=== PATIENT | female | born 2000 | race African-American/Black ===

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

== ENCOUNTER 2020-04-25 00:30 | Inpatient (IN) ==
[2020-04-25] MEDS ORDERED: FAMOTIDINE 20 MG/2 ML VIAL IV ONE (00:42)
[2020-04-25] MEDS ORDERED: ceFAZolin 2,000 MG in PREMIX 1 EACH IV ONE (00:42)
[2020-04-25] MEDS ORDERED: CITRIC ACID/SODIUM CITRATE 30 ML UDCUP PO ONE (00:42)
[2020-04-25] MEDS ORDERED: OXYTOCIN/LR 20 UNIT/1,000 ML BAG IV ONE ×3 (00:43→02:00)
[2020-04-25] MEDS ORDERED: miSOPROStoL 200 MCG TABLET ONE (00:57)
[2020-04-25] MEDS ORDERED: CARBOPROST TROMETHAMINE 250 MCG/ML AMP IM ONE (00:58)
[2020-04-25] MEDS ORDERED: METHYLERGONOVINE 0.2 MG/1 ML AMP ONE (00:58)
[2020-04-25] MEDS ORDERED: LACTATED RINGERS 1,000 ML IV SCH ×2 (01:00→02:00)
[2020-04-25 01:47] LABS: Cord Arterial Blood HCO3 20.6 MMOL/L
[2020-04-25 01:49] LABS: Cord Venous Blood HCO3 22.8 MMOL/L; Cord Venous Blood PO2 33.1
[2020-04-25] MEDS ORDERED: ACETAMINOPHEN 325 MG TABLET PO PRN (02:00)
[2020-04-25] MEDS ORDERED: ONDANSETRON 4 MG/2 ML VIAL IV PRN (02:00)
[2020-04-25] MEDS ORDERED: SIMETHICONE CHEW 80 MG TABLET PO PRN (02:00)
[2020-04-25] MEDS ORDERED: RHO(D) IMMUNE GLOBULIN 300 MCG SYRINGE IM ONE (02:00)
[2020-04-25] MEDS ORDERED: MORPHINE 10 MG/10 ML VIAL ONE (02:21)
[2020-04-25] MEDS ORDERED: PHENYLEPHRINE 1 MG/10 ML SYRINGE IV ONE (02:22)
[2020-04-25] MEDS ORDERED: fentaNYL 100 MCG/2 ML VIAL ONE (02:23)
[2020-04-25] MEDS ORDERED: BUPIVACAINE SPINAL 0.75% 2 ML AMP SPINAL ONE (02:23)
[2020-04-25 02:36] LABS: Bilirubin,Urine Negative (Negative); Blood, Urine Negative (Negative); Glucose,Urine (UA) Negative (Negative); Ketones,Urine 20 mg/dL (Negative); Mucus,Urine Occasional /LPF (Occasional); Nitrite,Urine Negative (Negative); Protein,Urine Negative; RBC,Urine 1 /HPF (0-4); Squamous Epithelial Cell,Urine Occasional /HPF (0-10); Urine Appearance CLEAR (Clear); Urine Color Yellow (Yellow); WBC,Urine 1 /HPF (0-6)
[2020-04-25 02:40] LABS: Barbiturates Screen,Urine Negative (Negative); Benzodiazepines Screen,Urine Negative (Negative); Cannabinoid Screen,Urine Positive (Negative); Opiate Screen,Urine Positive (Negative); Phencyclidine Screen,Urine Negative (Negative)
[2020-04-25 03:08] LABS: Basophils % 0.2 % (0.0-0.8); Hematocrit 33.9 VOL% (35.7-47.0); Hemoglobin 11.1 GM/DL (12.0-16.0); Immature Granulocytes % 0.2 %; Immature Granulocytes Absolute 0.03 #; Lymphocytes # 0.9 10*3/uL (1.4-4.0); Lymphocytes % 7.3 % (21.3-54.2); Mean Corpuscular HGB Conc 32.7 GM/DL (32-36); Mean Corpuscular Volume 72.6 FL (87-102); Mean Platelet Volume 10.7 FL (9.6-12.0); Monocytes % 5.1 % (1.7-12.7); NRBC # 0.02 10*3/uL; Neutrophils % 87.2 % (38.7-73.9); Red Blood Count 4.67 MC/CUMM (3.8-5.5); Red Cell Distribution Width 17.1 % (9.3-17.3); White Blood Count 12.6 T/CUMM (4-12)
[2020-04-25] MEDS ORDERED: INFLUENZA VIRUS VACCINE 0.5 ML SYRINGE IM ONE (03:12)
[2020-04-25 03:17] LABS: Platelet Count 173 T/CUMM (130-400)
[2020-04-25] MEDS ORDERED: HYDROmorphone 2 MG/1 ML VIAL IV PRN (03:40)
[2020-04-25 04:11] LABS: Platelet Estimate Normal
[2020-04-25 04:12] LABS: Target Cells 1+
[2020-04-25 04:13] LABS: Hypochromasia 1+
[2020-04-25] MEDS: oxyCODONE/ACETAMINOPHEN 5-325 MG TABLET PO PRN ×3 (07:59→21:21)
[2020-04-25] MEDS: MULTIVITAMIN (PRENATAL) TABLET PO SCH (08:00)
[2020-04-25] MEDS: IBUPROFEN 800 MG TABLET PO PRN ×2 (08:00→21:21)
[2020-04-25 09:28] LABS: Basophils # 0.1 10*3/uL (0.0-0.2); Basophils % 0.3 % (0.0-0.8); Eosinophils % 0.1 % (0.00-10.9); Hematocrit 32.4 VOL% (35.7-47.0); Hemoglobin 10.8 GM/DL (12.0-16.0); Immature Granulocytes % 0.3 %; Immature Granulocytes Absolute 0.06 #; Lymphocytes # 1.6 10*3/uL (1.4-4.0); Lymphocytes % 8.7 % (21.3-54.2); Mean Corpuscular HGB Conc 33.3 GM/DL (32-36); Mean Corpuscular Volume 71.7 FL (87-102); Mean Platelet Volume 10.5 FL (9.6-12.0); Monocytes % 5.3 % (1.7-12.7); Neutrophils % 85.3 % (38.7-73.9); Platelet Count 270 T/CUMM (130-400); Red Blood Count 4.52 MC/CUMM (3.8-5.5); White Blood Count 18.2 T/CUMM (4-12)
[2020-04-25] MEDS: DOCUSATE SODIUM 100 MG CAPSULE PO SCH ×2 (11:43→21:21)
[2020-04-26] MEDS: oxyCODONE/ACETAMINOPHEN 5-325 MG TABLET PO PRN ×4 (01:38→20:10)
[2020-04-26 05:40] LABS: Basophils # 0.1 10*3/uL (0.0-0.2); Basophils % 0.4 % (0.0-0.8); Eosinophils # 0.1 10*3/uL (0.0-0.87); Eosinophils % 0.6 % (0.00-10.9); Hematocrit 27.8 VOL% (35.7-47.0); Hemoglobin 9.2 GM/DL (12.0-16.0); Immature Granulocytes % 0.4 %; Immature Granulocytes Absolute 0.07 #; Lymphocytes # 2.2 10*3/uL (1.4-4.0); Lymphocytes % 13.2 % (21.3-54.2); Mean Corpuscular HGB Conc 33.1 GM/DL (32-36); Mean Corpuscular Volume 70.6 FL (87-102); Monocytes % 8.7 % (1.7-12.7); Neutrophils % 76.7 % (38.7-73.9); Platelet Count 261 T/CUMM (130-400); Red Blood Count 3.94 MC/CUMM (3.8-5.5); Red Cell Distribution Width 16.8 % (9.3-17.3); White Blood Count 16.5 T/CUMM (4-12)
[2020-04-26] MEDS: MULTIVITAMIN (PRENATAL) TABLET PO SCH (08:23)
[2020-04-26] MEDS: MAGNESIUM HYDROXIDE SUSP 30 ML UDCUP PO PRN ×2 (08:23→20:10)
[2020-04-26] MEDS: DOCUSATE SODIUM 100 MG CAPSULE PO SCH ×2 (08:23→20:10)
[2020-04-26] MEDS ORDERED: IBUPROFEN 400 MG TABLET PO PRN (23:30)
[2020-04-27] MEDS: MULTIVITAMIN (PRENATAL) TABLET PO SCH ×2 (07:28→09:53)
[2020-04-27] MEDS: DOCUSATE SODIUM 100 MG CAPSULE PO SCH ×2 (07:28→09:53)
[2020-04-27] MEDS: oxyCODONE/ACETAMINOPHEN 5-325 MG TABLET PO PRN (07:29)
[2020-04-27 08:38] VITALS: BP 125/69
== END 2020-04-27 12:55 | disposition home or self-care (01) | DRG 540 ==
LOC: N.LDOUT 00:30 → N.LD 00:32 → N.OB 04:52
PROVIDERS: ADMIT Obstetrics & Gynecology; ATTEND Obstetrics & Gynecology
PROC: LDCSECT (ICD-10-PCS; 2020-04-25 01:00)